=== PATIENT | male | born 1955 | race African-American/Black ===

== ENCOUNTER → 2020-04-15 15:25 | Outpatient (BNVA) | payer OTHER, SELFPAY | PROVIDERS: PCP Pediatrics Adolescent Medicine; Visit Provider Urology ==

== ENCOUNTER → 2021-07-28 13:50 | Outpatient (BNVA) | payer MEDICARE, OTHER, SELFPAY | PROVIDERS: PCP Pediatrics Adolescent Medicine; Visit Provider Urology | DX: N40.1 Benign prostatic hyperplasia with lower urinary tract symptoms (principal); N13.8 Other obstructive and reflux uropathy; R39.12 Poor urinary stream; N52.9 Male erectile dysfunction, unspecified | CPT/HCPCS: 99212 ==

== ENCOUNTER → 2021-09-17 14:56 | Outpatient (BNVA) | payer MEDICARE, OTHER, SELFPAY | PROVIDERS: PCP Pediatrics Adolescent Medicine; Visit Provider Urology | DX: N40.1 Benign prostatic hyperplasia with lower urinary tract symptoms (principal); N13.8 Other obstructive and reflux uropathy; N48.6 Induration penis plastica; N52.9 Male erectile dysfunction, unspecified | CPT/HCPCS: 52000; 99212 ==

== ENCOUNTER → 2021-12-24 13:08 | Outpatient (BNVA) | payer MEDICARE, OTHER, SELFPAY | PROVIDERS: PCP Pediatrics Adolescent Medicine; Visit Provider Urology | DX: N48.6 Induration penis plastica (principal); R39.12 Poor urinary stream; N52.9 Male erectile dysfunction, unspecified | CPT/HCPCS: Q3014 ==

== ENCOUNTER 2022-03-29 12:56 | Outpatient (REF) | payer MEDICARE, OTHER, SELFPAY | END 2022-03-29 12:57 | disposition home or self-care (01) | LOC: HO.LAB 12:56 | PROVIDERS: PCP Pediatrics Adolescent Medicine; Visit Provider Urology | DX: N39.0 Urinary tract infection, site not specified (principal); R39.12 Poor urinary stream; N40.1 Benign prostatic hyperplasia with lower urinary tract symptoms; N13.8 Other obstructive and reflux uropathy | CPT/HCPCS: 51798; 87086; 99212 ==

== ENCOUNTER → 2022-05-03 10:55 | Outpatient (BNVA) | payer MEDICARE, OTHER, SELFPAY | PROVIDERS: PCP Pediatrics Adolescent Medicine; Visit Provider Urology | DX: N40.1 Benign prostatic hyperplasia with lower urinary tract symptoms (principal); N13.8 Other obstructive and reflux uropathy; N48.6 Induration penis plastica; N52.9 Male erectile dysfunction, unspecified | CPT/HCPCS: 52000; 99212 ==

== ENCOUNTER 2022-06-13 09:23 | Day surgery (SDC) | payer MEDICARE, OTHER, SELFPAY ==
[2022-06-07 13:40] VITALS: BMI 25.7
--- NOTE | 2022-06-10 11:17 | P.CONAN_ITS ---
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 Chronic prostatitis Diverticulitis Enterococcus as the cause of diseases classified elsewhere Erectile dysfunction due to arterial insufficiency HTN (hypertension) Hyperlipidemia Irregular heart beat Nocturia UTI (urinary tract infection) Surgical History Surgical History (Updated 06/07/22 @ 13:39 by Aretha Molina RN) H/O colonoscopy History of colon resection History of prostate surgery History of surgery Social History Social History Are you a primary resident care manager to a significant other at home: No Do you presently have visiting nurse or other home services: No Patient Tobacco Use Status: Never used Tobacco Use of substances other than those prescribed or required for medical reasons: No Have you been hit, kicked, punched, or otherwise hurt by someone within the past year? If so, by whom?: No Are you DNR?: No Advance Directives Information Provided: Yes (as above noted) Advance Directives on File: No Recently lost weight without trying: No Eating poorly because of decreased appetite: No Nutrition Risks: No Nutritional Risk Poor oral hygiene: No Meds Allergies Allergy/AdvReac Type Severity Reaction Status Date / Time No Known Allergies Allergy Verified 05/03/22 10:58 [No Known Allergies*] Home Medications Medication Instructions Recorded Confirmed Last Taken Type atorvastatin 10 mg tablet 10 mg PO DAILY 07/28/21 06/07/22 Unknown History carvedilol 3.125 mg tablet 3.125 mg PO BID 07/28/21 06/07/22 Unknown History clonidine HCl 0.1 mg tablet 0.1 mg PO BID 07/28/21 06/07/22 Unknown History eplerenone 50 mg tablet 50 mg PO DAILY 07/28/21 06/07/22 Unknown History nifedipine 90 mg tablet,extended 90 mg PO DAILY 07/28/21 06/07/22 Unknown History release losartan 100 mg tablet 100 mg PO DAILY 05/03/22 06/07/22 Unknown History vitamin E (dl, acetate) 450 mg 450 mg PO DAILY 06/07/22 06/07/22 Unknown History (1,000 unit) capsule Exam Exam Date and Time: June 10, 2022 1117 Height,Weight and Vital Signs: Height 5 ft 11 in Weight 83.915 kg Assessment and Plan Assessment Anesthesia Assessment: Chart Reviewed Documented by User: Brittni Tucker MD 06/13/22 11:29 PMFSH Past Medical History Medical History (Updated 06/07/22 @ 13:39 by Aretha Molina RN) 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 Chronic prostatitis Diverticulitis Enterococcus as the cause of diseases classified elsewhere Erectile dysfunction due to arterial insufficiency HTN (hypertension) Hyperlipidemia Irregular heart beat Nocturia UTI (urinary tract infection) Family History Family history of problems with anesthesia: No Surgical History Surgical History (Updated 06/07/22 @ 13:39 by Aretha Molina RN) H/O colonoscopy History of colon resection History of prostate surgery History of surgery History of Problems with Anesthesia: No Social History Social History Are you a primary resident care manager to a significant other at home: No Do you presently have visiting nurse or other home services: No Patient Tobacco Use Status: Never used Tobacco Use of substances other than those prescribed or required for medical reasons: No Have you been hit, kicked, punched, or otherwise hurt by someone within the past year? If so, by whom?: No Are you DNR?: No Advance Directives Information Provided: Yes (as above noted) Advance Directives on File: No Recently lost weight without trying: No Eating poorly because of decreased appetite: No Nutrition Risks: No Nutritional Risk Poor oral hygiene: No Meds Allergies Allergy/AdvReac Type Severity Reaction Status Date / Time No Known Allergies Allergy Verified 05/03/22 10:58 [No Known Allergies*] Home Medications Medication Instructions Recorded Confirmed Last Taken Type atorvastatin 10 mg tablet 10 mg PO DAILY 07/28/21 06/07/22 Unknown History carvedilol 3.125 mg tablet 3.125 mg PO BID 07/28/21 06/07/22 Unknown History clonidine HCl 0.1 mg tablet 0.1 mg PO BID 07/28/21 06/07/22 Unknown History eplerenone 50 mg tablet 50 mg PO DAILY 07/28/21 06/07/22 Unknown History nifedipine 90 mg tablet,extended 90 mg PO DAILY 07/28/21 06/07/22 Unknown History release losartan 100 mg tablet 100 mg PO DAILY 05/03/22 06/07/22 Unknown History vitamin E (dl, acetate) 450 mg 450 mg PO DAILY 06/07/22 06/07/22 Unknown History (1,000 unit) capsule Exam Airway Mallampati Class: II TM Dist: >3cm Neck ROM: Full Heart: rrr Lungs: cta Assessment and Plan Assessment Anesthesia Assessment: Anesthesia Plan Discussed Final Anesthetic Review Family History of Problems with Anesthesia: No History of Problems with Anesthesia: No NPO: Yes ASA Class: II Final Preanesthetic Review: No Changes in Pt Med Stat, Meds/Allgs Chart Reviewed, Consent Obtained/Reviewed and Anes Risks/Benef Reviewed Patient Risk: Low Procedure Risk: Intermediate Anesthetic Plan Anesthetic Plan: GA Disposition: Standard PACU
[2022-06-13 09:52] VITALS: BP 160/63; PULSE 50; RESP 16; TEMP 36.3; O2SAT 98; BMI 25.7
--- NOTE | 2022-06-13 11:46 | MHC.SHP ---
Pre-Procedural Eval Section A Date of Service: 06/13/22 The patient is an INPATIENT: No Changes since office visit: No Cold of Flu in the past 2 weeks, No New Medical Problems, No Changes in Medication and No Patient answered all questions The History & Physical has been completed within 30 days and I have reviewed it.: Yes Section B Chief Complaint: Benign prostatic hyperplasia with lower urinary tr Details of Present Illness: Regrowth for repeat TURP Allergies: Allergies Allergy/AdvReac Type Severity Reaction Status Date / Time No Known Allergies Allergy Verified 05/03/22 10:58 [No Known Allergies*] Review of Systems Sugical H&P ROS: Negative: Constitution, Cardiovascular, Respiratory, Neurological, Psychiatric, Hem-Onc, Allergic/Immunologic, Gastrointestinal, Genitourinary, Musculoskeletal, Integumentary, Endocrine and Eyes/Ears/Nose/Throat Exam Surgical H&P Exam: Normal: HEENT, Normal: Heart, Normal: Lungs, Normal: Extremities, Normal: Abdomen, Normal: Skin and Normal: Neurological Plan Diagnosis/Plan: Unchanged (redo laser enucleation) I have reviewed the history and physical and performed a pertinent physical examination on my patient. No changes have occurred unless specified. Time Spent With Patient Time: Total time managing care of this patient today ____ minutes.
--- NOTE | 2022-06-13 12:39 | W.PM.OPN ---
Operative Note Operative Note Date of Service: 06/13/22 Narrative: PreOperative Diagnosis: Bladder outlet obstruction recurrent Post Operative Diagnosis: Bladder outlet obstruction recurrent Procedure: GreenLight Laser Enucleation of the prostate Surgeon: Dr Regulo Mina Anesthesia: General Indications for procedure: procedure in 2017 History of bladder outlet obstruction. Treated with alpha-jorge and other medications. Still with symptoms. On cystoscopy in office has recurrence of median lobe. Recommendation for prostate procedure with laser enucleation of prostate. Risks and benefits have been discussed. Focus was placed on development of retrograde ejaculation which is a normal part of this procedure. Procedure: After informed consent was verified the patient was brought to the operating room and placed in a supine position. Anesthesia was administered per protocol. Patient was placed in modified dorsal lithotomy position and prepped and draped in a sterile fashion. Safety pause time-out was confirmed. Antibiotics have been given. A Twenty-four Trinidadian laser cystoscope was inserted per urethra. No abnormalities were found of the anterior and bulbar urethra. The bladder was examined and both ureteric orifices were seen in their normal positions away from the area of interest. Using a GreenLight laser with settings of 80 w incisions were made at the 5 and 7 o'clock position. The incisions were taken down from the bladder neck down to the level of the veru. These were gradually deepened in order to define the lateral aspects of the median lobe area. Once clearly defined they will also extended in the lateral directions in order to create a deep groove. The median lobe was then ablated and enucleated tissue released into the bladder with the laser power increased to 120 W. Once the median lobe area had been cleared attention was directed to the lateral lobes. Starting with the patient's left lateral lobe. First the 05:00 o'clock groove was further developed. This was moved in the lateral direction to undermine the tissue on the lateral side running from the bladder neck to the prostate apex. The tissue on the left side was ablated from the 7 oclock to 10 oclock position and 5 oclock to 2 oclock position A similar procedure was repeated on the patient's right-hand side. The only differences being the position of the lateral groove at he 7 'oclock positioin and the secondary groove at the 11 o'clock position, Otherwise the procedure was developed in a mirror fashion. After the majority of tissue had been debulked remnant tissue was ablated with the side fire laser and the curve of the prostate followed up each side wall clearly defining the anterior remnant strip that remained between the 11 and 1 o'clock positions. When this was had been completed debris and pieces of prostate were removed from the bladder with irrigation. Both ureteric orifices were reviewed again in shown to be patent in away from any areas of energy damage. The apical area was reviewed in any stray ooze was controlled. A 22 Trinidadian 30 cc balloon Albrecht catheter was placed over a stylet into the bladder. Clear efflux was obtained upopn irrigation with a Krunal piston syringe. 30 cc was placed in the balloon and gentle traction was placed. A snap was used to hold tension on the catheter to control bleeding during patient moved and transported. A drainage bag was placed. Once transportation is complete to the PACU the snap will be removed. The patient tolerated the procedure well, he was extubated in the operating and transferred in a stable condition to the recovery area. Total Power 45 kW Lasing time 10;30 Pathology: Prostate tissue Drains: Albrecht catheter
[2022-06-13 12:46] VITALS: BP 108/59; PULSE 46; RESP 14; TEMP 36.8; O2SAT 94
[2022-06-13 12:51] VITALS: BP 110/44; PULSE 43; RESP 16; O2SAT 98
[2022-06-13 12:56] VITALS: BP 120/52; PULSE 44; RESP 16; O2SAT 98
[2022-06-13 13:01] VITALS: BP 122/61; PULSE 46; RESP 16; O2SAT 97
[2022-06-13 13:16] VITALS: BP 123/63; PULSE 51; RESP 16; TEMP 36.3; O2SAT 98
== END 2022-06-13 13:57 | disposition home or self-care (01) ==
PROVIDERS: PCP Pediatrics Adolescent Medicine; Visit Provider Urology
PROC: (CPT 52648; principal; 2022-06-13 11:00)
DX: N40.1 Benign prostatic hyperplasia with lower urinary tract symptoms (principal); N13.8 Other obstructive and reflux uropathy; R35.1 Nocturia; N41.1 Chronic prostatitis; N52.9 Male erectile dysfunction, unspecified; N48.6 Induration penis plastica; G51.0 Bell's palsy; I10 Essential (primary) hypertension; E78.5 Hyperlipidemia, unspecified; Z79.899 Other long term (current) drug therapy; Z90.49 Acquired absence of other specified parts of digestive tract
CPT/HCPCS: 52649; J1956; J3010

== ENCOUNTER → 2022-06-16 09:56 | Outpatient (BNVA) | payer MEDICARE, OTHER, SELFPAY | PROVIDERS: PCP Pediatrics Adolescent Medicine; Visit Provider Urology | DX: N40.1 Benign prostatic hyperplasia with lower urinary tract symptoms (principal); N13.8 Other obstructive and reflux uropathy | CPT/HCPCS: 51700; 51798 ==

== ENCOUNTER → 2022-07-29 09:29 | Outpatient (BNVA) | payer MEDICARE, OTHER, SELFPAY | PROVIDERS: PCP Pediatrics Adolescent Medicine; Visit Provider Urology | DX: N40.1 Benign prostatic hyperplasia with lower urinary tract symptoms (principal); N13.8 Other obstructive and reflux uropathy; N52.9 Male erectile dysfunction, unspecified | CPT/HCPCS: 51798; 99212 ==

== ENCOUNTER 2023-01-30 10:40 | Outpatient (REF) | payer MEDICARE, OTHER, SELFPAY ==
[2023-01-30 14:03] LABS: Prostate Specific Antigen 3.44 ng/mL (<0.05-4.0)
== END 2023-01-30 10:41 | disposition home or self-care (01) ==
LOC: HO.10HDL 10:40
PROVIDERS: Visit Provider Urology
DX: Z12.5 Encounter for screening for malignant neoplasm of prostate (principal); N40.1 Benign prostatic hyperplasia with lower urinary tract symptoms; N13.8 Other obstructive and reflux uropathy
CPT/HCPCS: 36415; 84153

== ENCOUNTER 2023-01-31 15:24 | Outpatient (AMB) | payer MEDICARE, OTHER, SELFPAY ==
--- NOTE | 2023-01-31 15:25 | MHC.OFFVIS ---
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
--- NOTE | 2023-01-31 15:28 | MHC.OFFVIS ---
Intake Intake Visit Reasons: 6M PSA(set) Intake Note: Patient is Present for Follow Up Urology Medication: Sildenafil, Tadalafil Antibiotic Allergies: None Blood Thinners: None Allergies No Known Allergies [No Known Allergies*] Allergy (Verified 07/29/22 09:41) HPI HPI Comments History of Present Illness Details Mr Rucker is a very pleasant male. He is a patient of Dr Melgar. He is seen for the following urologic conditions - lower urinary tract symptoms - erectile dysfunction - Peyronie's disease Six month follow-up Recurrent Peyronie's Discussed vacuum pump therapy Prescriptions provided 6 month follow-up Lower Urinary Tract Symptoms: Current visit is for further evaluation of, lower urinary tract symptoms, predominate obstructive symptoms - minimal issues with good stream. Current treatment includes 04/15 no medications. Prior treatments include 10/10 HoLEP, 07/17 Green Light PSA 08/11 1.7 04/15 2.0, 02/16 3.4 Prostatitis/CPPS: 10/14/15 - seen in ER at [facility]. Noted to have Escherichia coli urinary tract infection. Erectile dysfunction: He presents today for for continued evaluation and management of erectile dysfunction. Symptoms have been present for/since years ago. Current treatment includes sildenafil 100 mg. At this time he experiences erections 09/11 are partial and adequate for vaginal penetration, that undergo rapid detumesence after penetration, ROVERTO 8-11 Moderate ED. Nocturnal erections do occur. Currently they are in a stable relationship. Associated problems hypertension Yes diabetes No dyslipidemia No depression No stress No decreased libido No pelvic surgery No Overall he is satisfied with the current management [facility] Medical History Diverticulitis Irregular heart beat Travis's palsy HTN (hypertension) Hyperlipidemia Erectile dysfunction due to arterial insufficiency Nocturia Benign prostatic hyperplasia with lower urinary tract symptoms Chronic prostatitis Enterococcus as the cause of diseases classified elsewhere UTI (urinary tract infection) Surgical History History of colon resection H/O colonoscopy History of prostate surgery History of surgery Social History Are you a primary transitions rn care coordinator to a significant other at home: No Do you presently have visiting nurse or other home services: No Patient Tobacco Use Status: Never used Tobacco Review of Systems Const Denies chills and Denies fever(s) Card Reports no additional complaints and Denies syncope Resp Denies cough GI Denies abdominal pain and Denies heartburn Reports as per HPI and Denies change in libido Neuro Denies syncope Psych Denies change in libido Endo Denies change in libido Physical Exam Const General: cooperative, healthy appearing, comfortable and no acute distress Orientation/consciousness: patient oriented x3 HEENT Face and sinus: Yes normal facial exam Mouth: moist mucous membranes Neck Neck: Yes normal visual inspection, Yes full ROM and Yes trachea midline Chest Chest palpation & inspection: normal inspection of the chest Resp Effort & Inspection: normal respiratory effort, able to speak in complete sentences and no respiratory distress GI Inspection: Yes normal to inspection Back/Spine/Pelvis Cervical Spine: normal cervical lordosis Thoracic/Lumbar Spine: thoracic and lumbar spine normal to inspection Skin General skin exam: no rashes or lesions noted Neuro General: patient oriented x3, gait normal, tone normal and moves all extremities Extrem General: Yes normal to inspection and Yes capillary refill normal Assessment & Plan Assessment & Plan (1) Erectile dysfunction: Code(s): N52.9 - Male erectile dysfunction, unspecified Qualifiers: Erectile dysfunction type: vasculogenic Vasculogenic erectile dysfunction type: due to arterial insufficiency Qualified Code(s): N52.01 - Erectile dysfunction due to arterial insufficiency (2) Peyronie's disease: Code(s): N48.6 - Induration penis plastica Plan Six month follow-up Orders: Orders Prostate Specific Antigen 6 Months N13.8 - Other obstructive and reflux uropathy, N40.1 - Benign prostatic hyperplasia with lower urinary tract symptoms Medications: New vitamin E (dl, acetate) 450 mg PO DAILY 90 caps 1RF 90 days N48.6 - Induration penis plastica pentoxifylline ER administer with meals 400 mg PO BID 180 tabs 1RF 90 days N48.6 - Induration penis plastica Patient Instructions: Imaging studies, laboratory and physical exam results were discussed and reviewed in detail. No major barriers to patient understanding were identified. An opportunity to ask questions regarding the treatment plan was provided. All questions were answered. The patient expressed understanding and agreement with the above treatment plan. The patient is aware they should contact our office by phone for worsening of their current condition or the appearance of new urologic symptoms. Compliance is encouraged with any medications and followup testing that is ordered. It is a privilege to participate in the urologic care of your patient. If you have any questions or concerns regarding treatment for the above conditions, or other urologic issues, please do not hesitate to contact me. The office telephone contact is [phone]. This note is constructed using voice recognition software. While every effort has been made to ensure accuracy paper cup machine tender errors may have been included. Yours sincerely, Dr Regulo Mina MD, [facility] - Urology Providers of Expert, Compassionate Care for the Genitourinary System Coding Level of Care Code Est Pt Level 4 (78151) Diagnoses Erectile dysfunction due to arterial insufficiency N52.01 Erectile dysfunction type: vasculogenic Vasculogenic erectile dysfunction type: due to arterial insufficiency Peyronie's disease N48.6
== END 2023-01-31 15:55 | disposition home or self-care (01) ==
PROVIDERS: Visit Provider Urology
DX: N52.01 Erectile dysfunction due to arterial insufficiency (principal); N48.6 Induration penis plastica
CPT/HCPCS: 99214

== ENCOUNTER → 2023-01-31 15:24 | Outpatient (BNVA) | payer MEDICARE, OTHER, SELFPAY | PROVIDERS: Visit Provider Urology | DX: N52.01 Erectile dysfunction due to arterial insufficiency (principal); N48.6 Induration penis plastica | CPT/HCPCS: 99212 ==

== ENCOUNTER 2023-07-25 07:59 | Outpatient (REF) | payer MEDICARE, OTHER, SELFPAY ==
[2023-07-25 11:14] LABS: Prostate Specific Antigen 2.02 ng/mL (<0.05-4.0)
== END 2023-07-25 08:00 | disposition home or self-care (01) ==
LOC: HO.10HDL 07:59
PROVIDERS: Visit Provider Urology
DX: Z12.5 Encounter for screening for malignant neoplasm of prostate (principal); N40.1 Benign prostatic hyperplasia with lower urinary tract symptoms; N13.8 Other obstructive and reflux uropathy
CPT/HCPCS: 36415; 84153

== ENCOUNTER 2023-08-01 09:12 | Outpatient (AMB) | payer MEDICARE, OTHER, SELFPAY ==
--- NOTE | 2023-08-01 09:13 | MHC.OFFVIS ---
Intake Visit Reasons: 6M PSA(set) Intake Note: Patient is Present for Telephone Follow Up Urology Med: Sildenafil, Pentoxifylline, Tadalafil, Vitamin E Antibiotic Allergy: None Blood Thinner: None Allergies No Known Allergies [No Known Allergies*] Allergy (Verified 08/01/23 09:14) Medication List - Last Reconciled 08/01/23 by Regulo Mina MD atorvastatin 10 mg PO DAILY carvedilol 6.25 mg PO BID clonidine HCl 0.1 mg PO BID eplerenone 50 mg PO DAILY losartan 100 mg PO DAILY losartan 50 mg PO BID nifedipine ER 90 mg PO DAILY pentoxifylline ER 400 mg PO BID 90 days pentoxifylline ER 400 mg PO BID 90 days sildenafil 100 mg PO DAILY PRN 30 days tadalafil 5 mg PO DAILY 90 days vitamin E (dl, acetate) 450 mg PO DAILY vitamin E (dl, acetate) 450 mg PO DAILY 90 days HPI Comments Details: Mr Rucker is a very pleasant male. He is a patient of Dr Melgar. He is seen for the following urologic conditions - lower urinary tract symptoms - erectile dysfunction - Peyronie's disease Telemedicine Evaluation 15 min Consultation [employer] Danilo Video Six month follow-up Recurrent Peyronie's - stable not interfering with activity Prescriptions provided 6 month follow-up Lower Urinary Tract Symptoms: Current visit is for further evaluation of, lower urinary tract symptoms, predominate obstructive symptoms - minimal issues with good stream. Current treatment includes 04/15 no medications. Prior treatments include 10/10 HoLEP, 07/17 Green Light PSA 08/11 1.7 04/15 2.0, 02/16 3.4, 07/18 2 Prostatitis/CPPS: 10/14/15 - seen in ER at [facility]. Noted to have Escherichia coli urinary tract infection. Erectile dysfunction: He presents today for for continued evaluation and management of erectile dysfunction. Symptoms have been present for/since years ago. Current treatment includes sildenafil 100 mg. At this time he experiences erections 09/11 are partial and adequate for vaginal penetration, that undergo rapid detumesence after penetration, ROVERTO 8-11 Moderate ED. Nocturnal erections do occur. Currently they are in a stable relationship. Associated problems hypertension Yes Overall he is satisfied with the current management [facility] Medical History Diverticulitis Irregular heart beat Travis's palsy HTN (hypertension) Hyperlipidemia Erectile dysfunction due to arterial insufficiency Nocturia Benign prostatic hyperplasia with lower urinary tract symptoms Chronic prostatitis Enterococcus as the cause of diseases classified elsewhere UTI (urinary tract infection) Surgical History History of colon resection H/O colonoscopy History of prostate surgery History of surgery Social History Are you a primary care technician to a significant other at home: No Do you presently have visiting nurse or other home services: No Patient Tobacco Use Status: Never used Tobacco Review of Systems Const All systems reviewed & are unremarkable except as noted in HPI and below Reports no additional complaints Resp Reports no additional complaints GI Reports no additional complaints Reports as per HPI Musc Reports no additional complaints Physical Exam Telemedicine evaluation Appropriate responses Regular breathing rate and rhythm HEENT Head: Yes normal to inspection Ears: hearing grossly normal bilaterally Eyes General: appearance normal, both eyes and all related structures Neck Neck: Yes normal visual inspection Chest Chest palpation & inspection: normal inspection of the chest Resp Effort & Inspection: normal respiratory effort and able to speak in complete sentences Telehealth Telehealth Telehealth Platform: [employer] Location of provider rendering services: practice address Location of patient: address on file Patient Identification confirmed using: Name, : Yes Telehealth method: video Patient verbally consented to treatment: Yes Patient verbally consented to billing insurance company: Yes Patient informed of any privacy concerns related to visit: Yes Minutes spent on Phone/Video with Pt.: 15 Assessment & Plan Assessment & Plan (1) Erectile dysfunction: Code(s): N52.9 - Male erectile dysfunction, unspecified Category: Medical Qualifiers: Erectile dysfunction type: vasculogenic Vasculogenic erectile dysfunction type: due to arterial insufficiency Qualified Code(s): N52.01 - Erectile dysfunction due to arterial insufficiency (2) Peyronie's disease: Code(s): N48.6 - Induration penis plastica Category: Medical (3) BPH w urinary obs/LUTS: Code(s): N40.1 - Benign prostatic hyperplasia with lower urinary tract symptoms; N13.8 - Other obstructive and reflux uropathy Category: Medical Plan Six-month follow-up Office Medications: Refilled vitamin E (dl, acetate) 450 mg PO DAILY 90 caps 1RF 90 days N48.6 - Induration penis plastica pentoxifylline ER administer with meals 400 mg PO BID 180 tabs 1RF 90 days N48.6 - Induration penis plastica tadalafil 5 mg PO DAILY 90 tabs 1RF sexual activity 90 days N48.6 - Induration penis plastica, N52.01 - Erectile dysfunction due to arterial insufficiency Patient Instructions: Imaging studies, laboratory and physical exam results were discussed and reviewed in detail. No major barriers to patient understanding were identified. An opportunity to ask questions regarding the treatment plan was provided. All questions were answered. The patient expressed understanding and agreement with the above treatment plan. The patient is aware they should contact our office by phone for worsening of their current condition or the appearance of new urologic symptoms. Compliance is encouraged with any medications and followup testing that is ordered. It is a privilege to participate in the urologic care of your patient. If you have any questions or concerns regarding treatment for the above conditions, or other urologic issues, please do not hesitate to contact me. The office telephone contact is [phone]. This note is constructed using voice recognition software. While every effort has been made to ensure accuracy manager house errors may have been included. Yours sincerely, Dr Regulo Mina MD, [facility] - Urology Providers of Expert, Compassionate Care for the Genitourinary System Coding Level of Care Code Tele Est Pt Level 3 (92588) Diagnoses Erectile dysfunction due to arterial insufficiency N52.01 Erectile dysfunction type: vasculogenic Vasculogenic erectile dysfunction type: due to arterial insufficiency Peyronie's disease N48.6 BPH w urinary obs/LUTS N40.1; N13.8
== END 2023-08-01 09:50 | disposition home or self-care (01) ==
LOC: HO.HUSH 09:12
PROVIDERS: PCP Pediatrics Adolescent Medicine; Visit Provider Urology
DX: N52.01 Erectile dysfunction due to arterial insufficiency (principal); N48.6 Induration penis plastica; N40.1 Benign prostatic hyperplasia with lower urinary tract symptoms; N13.8 Other obstructive and reflux uropathy
CPT/HCPCS: 99213

== ENCOUNTER → 2023-08-01 09:12 | Outpatient (BNVA) | payer MEDICARE, OTHER, SELFPAY | PROVIDERS: PCP Pediatrics Adolescent Medicine; Visit Provider Urology ==

== ENCOUNTER 2024-01-31 15:27 | Outpatient (AMB) | payer MEDICARE, OTHER, SELFPAY ==
--- NOTE | 2024-01-31 15:33 | MHC.OFFVIS ---
Intake Visit Reasons: 6m follow up Intake Note: Patient is present for 6M F/U Urology Medication: Sildenafil, Tadalafil, Pentoxifyllin, Vitamin E Antibiotic Allergy: None Blood Thinner: None Allergies No Known Allergies [No Known Allergies*] Allergy (Verified 08/01/23 09:14) HPI Comments Details: Mr Rucker is a very pleasant male. He is a patient of Dr Melgar. He is seen for the following urologic conditions - lower urinary tract symptoms - erectile dysfunction - Peyronie's disease Six month follow-up Recurrent Peyronie's - stable not interfering with activity - palpable plaque at dorsum of penis Prescriptions provided Twelve month follow-up Lower Urinary Tract Symptoms: Current visit is for further evaluation of, lower urinary tract symptoms, predominate obstructive symptoms - minimal issues with good stream. Current treatment includes 04/15 no medications. Prior treatments include 10/10 HoLEP, 07/17 Green Light PSA 08/11 1.7 04/15 2.0, 02/16 3.4, 07/18 2 Prostatitis/CPPS: 10/14/15 - seen in ER at [facility]. Noted to have Escherichia coli urinary tract infection. Erectile dysfunction: He presents today for for continued evaluation and management of erectile dysfunction. Symptoms have been present for/since years ago. Current treatment includes sildenafil 100 mg. At this time he experiences erections 09/11 are partial and adequate for vaginal penetration, that undergo rapid detumesence after penetration, ROVERTO 8-11 Moderate ED. Nocturnal erections do occur. Currently they are in a stable relationship. Associated problems hypertension Yes Overall he is satisfied with the current management [facility] Medical History Diverticulitis Irregular heart beat Travis's palsy HTN (hypertension) Hyperlipidemia Erectile dysfunction due to arterial insufficiency Nocturia Benign prostatic hyperplasia with lower urinary tract symptoms Chronic prostatitis Enterococcus as the cause of diseases classified elsewhere UTI (urinary tract infection) Surgical History History of colon resection H/O colonoscopy History of prostate surgery History of surgery Social History Are you a primary child care group leader to a significant other at home: No Do you presently have visiting nurse or other home services: No Patient Tobacco Use Status: Never used Tobacco Review of Systems Const Denies chills and Denies fever(s) Card Reports no additional complaints and Denies syncope Resp Denies cough GI Denies abdominal pain and Denies heartburn Reports as per HPI and Denies change in libido Neuro Denies syncope Psych Denies change in libido Endo Denies change in libido Physical Exam Const General: cooperative, healthy appearing, comfortable and no acute distress Orientation/consciousness: patient oriented x3 HEENT Face and sinus: Yes normal facial exam Mouth: moist mucous membranes Neck Neck: Yes normal visual inspection, Yes full ROM and Yes trachea midline Chest Chest palpation & inspection: normal inspection of the chest Resp Effort & Inspection: normal respiratory effort, able to speak in complete sentences and no respiratory distress GI Inspection: Yes normal to inspection Back/Spine/Pelvis Cervical Spine: normal cervical lordosis Thoracic/Lumbar Spine: thoracic and lumbar spine normal to inspection Skin General skin exam: no rashes or lesions noted Neuro General: patient oriented x3, gait normal, tone normal and moves all extremities Extrem General: Yes normal to inspection and Yes capillary refill normal Assessment & Plan Assessment & Plan (1) BPH w urinary obs/LUTS: Code(s): N40.1 - Benign prostatic hyperplasia with lower urinary tract symptoms; N13.8 - Other obstructive and reflux uropathy Category: Medical (2) Erectile dysfunction: Code(s): N52.9 - Male erectile dysfunction, unspecified Category: Medical Qualifiers: Erectile dysfunction type: vasculogenic Vasculogenic erectile dysfunction type: due to arterial insufficiency Qualified Code(s): N52.01 - Erectile dysfunction due to arterial insufficiency (3) Peyronie's disease: Code(s): N48.6 - Induration penis plastica Category: Medical Plan Stable 12 month follow-up Orders: Orders Prostate Specific Antigen 364 Days N13.8 - Other obstructive and reflux uropathy, N40.1 - Benign prostatic hyperplasia with lower urinary tract symptoms Medications: Discontinued pentoxifylline ER administer with meals Discontinued Reason: Duplicate 400 mg PO BID 90 days 180 tabs 1RF N48.6 - Induration penis plastica Patient Instructions: Imaging studies, laboratory and physical exam results were discussed and reviewed in detail. No major barriers to patient understanding were identified. An opportunity to ask questions regarding the treatment plan was provided. All questions were answered. The patient expressed understanding and agreement with the above treatment plan. The patient is aware they should contact our office by phone for worsening of their current condition or the appearance of new urologic symptoms. Compliance is encouraged with any medications and followup testing that is ordered. It is a privilege to participate in the urologic care of your patient. If you have any questions or concerns regarding treatment for the above conditions, or other urologic issues, please do not hesitate to contact me. The office telephone contact is [phone]. This note is constructed using voice recognition software. While every effort has been made to ensure accuracy ab initio etl developer errors may have been included. Yours sincerely, Dr Regulo Mina MD, [facility] - Urology Providers of Expert, Compassionate Care for the Genitourinary System Coding Level of Care Code Est Pt Level 3 (81325) Diagnoses BPH w urinary obs/LUTS N40.1; N13.8 Erectile dysfunction due to arterial insufficiency N52.01 Erectile dysfunction type: vasculogenic Vasculogenic erectile dysfunction type: due to arterial insufficiency Peyronie's disease N48.6
== END 2024-01-31 16:10 | disposition home or self-care (01) ==
LOC: HO.HUSH 15:27
PROVIDERS: PCP Pediatrics Adolescent Medicine; Visit Provider Urology
DX: N40.1 Benign prostatic hyperplasia with lower urinary tract symptoms (principal); N13.8 Other obstructive and reflux uropathy; N52.01 Erectile dysfunction due to arterial insufficiency; N48.6 Induration penis plastica
CPT/HCPCS: 99213

== ENCOUNTER → 2024-01-31 15:27 | Outpatient (BNVA) | payer MEDICARE, OTHER, SELFPAY | PROVIDERS: PCP Pediatrics Adolescent Medicine; Visit Provider Urology | DX: N48.6 Induration penis plastica (principal); N40.1 Benign prostatic hyperplasia with lower urinary tract symptoms; N13.8 Other obstructive and reflux uropathy; N52.01 Erectile dysfunction due to arterial insufficiency | CPT/HCPCS: 99212 ==

== ENCOUNTER 2025-02-07 07:37 | Outpatient (REF) | payer MEDICARE, OTHER, SELFPAY ==
--- OUTSIDE RECORDS SUMMARY | 2025-02-07 07:39 | XMS_ITS | Clinical Summary ---
Author Organization [facility] Address [address] [place] [address] Care Team Providers Care Commercial Loan Administrator Name Role Phone Lisha Charles MD Primary Care Provid er Allergies No known active allergies Medications Medication Sig Dispensed Refills Start Date End Date Status atorvastatin (LIPITOR) tablet 10 mg Take by mouth. 0 Active carvedilol (COREG) 6.25 MG tablet Take by mouth. 0 09/30/2022 Active cloNIDine (CATAPRES) tablet 0.1 mg Take by mouth. 0 Active Cyanocobalamin ER 1000 MCG TBCR Take by mouth. 0 Active eplerenone (INSPRA) tablet 50 mg 0 12/28/2021 Active gabapentin (NEURONTIN) 300 MG capsule Take by mouth. 0 12/01/2022 Active losartan (COZAAR) 100 MG tablet Take by mouth. 0 04/22/2022 Active Multiple Vitamins-Minerals (Multivitamin Adults) TABS Take by mouth. 0 Active naproxen (NAPROSYN) 500 MG tablet Take by mouth. 0 12/01/2022 Active NIFEdipine ER (ADALAT CC) 90 MG 24 hr tablet Take by mouth. 0 Ac tive pentoxifylline (TRENtal) 400 MG CR tablet 0 Active predniSONE (DELTASONE) tablet 20 mg Take by mouth. 0 12/01/2022 Active tadalafil (CIALIS) 5 MG tablet 0 Active Active Problems No known active problems Social History Tobacco Use Types Packs/Day Years Used Date Smoking Tobacco: Never Smokeless Tobacco: Never Tobacco Cessation:Counseling Given: Not Answered Alcohol Use Standard Drinks/Week Comments Yes 0 (1 standard drink = 0.6 oz pur e alcohol) Social Sex and Gender Information Value Date Recorded Sex Assigned at Male 02/03/2023 11:07 AM EST Gender Identity Not on file Sexual Orientation Not on file Job Start Date Occupation Industry Not on file Not on file Not on file Last Filed Vital Signs Vital Sign Reading Time Taken Comments Blood Pressure 167/66 03/30/2023 3:59 PM EST Pulse 54 03/30/2023 3:59 PM EST Temperature 36.1 C (97 F) 03/30/2023 3:59 PM EST Respiratory Rate - - Oxygen Saturation 100% 03/30/2023 3:59 PM EST Inhaled Oxygen Concentration - - Weight 85.1 kg (187 lb 9.6 oz) 03/30/2023 3:59 P M EST Height - - Body Mass Index - - Plan of Treatment Health Maintenance Due Date Last Done Comments Hepatitis C Screening 1955 COVID-19 Vaccine (#1) 01[birth year]01/1955 Depression Screening 1966 Preventative Health Evaluation 1972 DTap / Tdap / Td (1 - Tdap) 1973 Colon Cancer Screening (Colonoscopy) 07/03/1999 Shingrix-Zoster Vaccine (1 of 2) 2004 Fall Risk Assessment 07/03/2019 Pneumococcal Vaccine (1 of 1 - PCV) 07/03/2019 Influenza Vaccine (#1) 2024 RSV Adult > 60+ Yrs or Pregn ant (1 - 1-dose 75+ series) 2029 Hepatitis B Vaccines Aged Out No long er eligible based on patient's age to complete this topic RSV Ped < 20 months Aged Out No longe r eligible based on patient's age to complete this topic Care Teams Commercial Loan Administrator Relationship Specialty Start Date End Date Lisha Charles MD [address] [place] [address] PCP - General Gastroenterology 02/03/23
--- OUTSIDE RECORDS SUMMARY | 2025-02-07 07:39 | XMS_ITS | Clinical Summary ---
Author Organization [facility] Facility Address [address] [place] [id number] Care Team Providers Care Flasher Adjuster Name Role Phone Lisha Charles MD Primary Care Provider Medications eplerenone (INSPRA) 50 MG tablet TAKE 1 TABLET BY MOUTH DAILY 30 tablet 10 12/28/2021 Active Family History Medical History Relation Comments Cancer Father Diabetes Father Heart disease Father Hypertension Father Kidney disease Father Diabetes Mother Hypertension Mother Stroke Mother Relation Status Comments Father Mother Social History Tobacco Use Types Packs/Day Years Used Date Smoking Tobacco: Never Alcohol Use Standard Drinks/Week Comments Yes 0 (1 standard drink = 0.6 oz pure alcohol) Alcoholic Drinks/day: Occasional social drink Sex and Gender Information Value Date Recorded Sex Assigned at Not on file Legal Sex Male 4:44 PM EST Gender Identity Not on file Sexual Orientation Not on file Last Filed Vital Signs Vital Sign Reading Time Taken Comments Blood Pressure 136/68 10/23/2018 12:00 PM EDT Pulse 48 10/23/2018 12:00 PM EDT Temperature - - Respiratory Rate - - Oxygen Saturation 97% 10/23/2018 12: 00 PM EDT Inhaled Oxygen Concentration - - Weight 92.4 kg (203 lb 11.3 oz) 019 12:00 PM EDT Height 177.8 cm (5' 10 ) 10/23/2018 12: 00 PM EDT Body Mass Index 29.23 10/23/2018 12:00 PM EDT Plan of Treatment Health Maintenance Due Date Last Done Comments Colorectal Cancer Screening: Annual FOBT 07/03/2003 Colorectal Cancer Screening: Colonoscopy 07/03/2003 Colorectal Cancer Screening: Sigmoidoscopy 07/03/2003 Pneumococcal Vaccine: 50+ Ye ars (1 of 1 - PCV) 2004 Influenza Vaccine (#1) 2024 Hepatitis B Vaccine Aged Out No longe r eligible based on patient's age to complete this topic Insurance Care Teams Flasher Adjuster Relationship Specialty Start Date End Date Lisha Charles MD [address] [place] [address] [address] [place] [address] PCP - General 04/06/20
--- OUTSIDE RECORDS SUMMARY | 2025-02-07 07:39 | XMS_ITS | Clinical Summary ---
Author Organization [facility] Address [address] [place] [address] Phone Care Team Providers Care Color Depositing Machine Tender Name Role Phone Lisha Charles MD Primary Care Provid er Allergies No known active allergies Medications atorvastatin (LIPITOR) 10 mg tablet Take by mouth. Activ e cloNIDine (CATAPRES) 0.1 mg tablet Take by mouth. Activ e cyanocobalamin (VITAMIN B-12) 100 mcg tablet Take 1 Tablet by mouth daily. Active losartan (COZAAR) 25 mg tablet Take 25 mg by mouth daily. Active NIFEdipine CC (ADALAT CC) 90 mg 24 hr tablet Take by mouth. Active eplerenone (INSPRA) 50 mg tablet Take 50mg by mouth daily. Active potassium chloride (KLOR-CON M10) 10 mEq CR tablet Take 1 tablet (10 mEq total) by mouth 1 (one) time each day. Tablet may be swallowed whole (do not crush/chew/suck on) OR broken in half and each half swallowed separately OR dissolved (whole tablet) in ~4 ounces of water (allow ~2 minutes to dissolve, stir well and administer immediately). 90 each 2 4 Active carvediloL (COREG) 6.25 mg tablet TAKE ONE TABLET BY MOUTH TWO TIMES A DAY WITH MEALS 180 tablet 1 5 Active Active Problems Problem Noted Date Diagnosed Date Palpitations 03/09/2021 Overview (12/26/2023): Last Assessment & Plan: Coincide with his frequent PVCs. He had no ischemic symptoms so far. But we need to assess possibility of ischemia given his risk factors including age and hypertension. I will arrange exercise echocardiogram stress test. Hypertension 03/09/2021 Overview (12/26/2023): Multidrug resistant hypertension. No renal artery stenosis. Last Assessment & Plan: Blood pressure generally well controlled on current regimen. He knows to follow a low-sodium diet and maintain regular exercise. Ventricular ectopy 03/04/2021 Overview (12/26/2023): Frequent PVCs. Holter monitor showed a 13% PVC burden. Transition to positive QRS complex in V4 suggesting outflow tract etiology. No evidence of right ventricular outflow tract cardiomyopathy. No syncope or family history of premature sudden cardiac . 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 There is no evidence of underlying cardiomyopathy or active coronary artery disease based on his current work-up and history. I reviewed the basis for the PVCs along with the potential treatments including pharmacologic suppression and catheter ablation. Given his LVEF does remain normal and the symptom burden is really quite mild is very reasonable to treat these conservatively and continue to monitor for any ventricular dysfunction. He elected to follow that path. It would be reasonable to ablate these given there is no location that would likely be accessible if we decide on a more aggressive approach at any time. Bradycardia 03/04/2021 Encounters Date Type Department Care Team Description 02/04/2025 Results Follow-Up [facility] [address] [place] [address] Reyna Nelson PA 01/30/2025 8:00 AM EST Ancillary Procedure [facility] [address] [place] [address] SOB (shortness of breath) from Last 3 Months Medical History Medical History Date Comments Palpitations 03/09/2021 Primary hypertension Bradycardia 03/04/2021 Ventricular premature beats 03/04/2021 Social History Tobacco Use Types Packs/Day Years Used Date Smoking Tobacco: Never Passive Smoke Exposure: Never Smokeless Tobacco: Never Tobacco Cessation:Counseling Given: Not Answered Alcohol Use Standard Drinks/Week Comments Yes 0 (1 standard drink = 0.6 oz pur e alcohol) Sex and Gender Information Value Date Recorded Sex Assigned at Not on file Legal Sex Male 6:58 AM EST Gender Identity Not on file Sexual Orientation Not on file Obstetrics History Last Filed Vital Signs Vital Sign Reading Time Taken Comments Blood Pressure 128/63 01/30/2025 8:14 AM EST Pulse 60 02/01/2024 2:22 PM EST Temperature - - Respiratory Rate - - Oxygen Saturation 98% 02/01/2024 2:22 PM EST Inhaled Oxygen Concentration - - Weight 85.7 kg (189 lb) 01/30/2025 8:14 AM EST Height 182.9 cm (6') 01/30/2025 8:14 AM EST Body Mass Index 25.63 01/30/2025 8:14 AM EST Plan of Treatment Upcoming Encounters Date Type Department Care Team (Late st Contact Info) Description 04/01/2025 9:25 AM EST Office Visit [facility] [address] [facility] [address] [place] [address] Hood Bowers MD [address] [place] [address] [place] [address] Health Maintenance Due Date Last Done Comments Colorectal Cancer Screening: Colonoscopy 1955 Abdominal Aortic Aneurysm (AAA) Screen 03/05/2022 Cholesterol Screening (Lipid Panel) 03/05/2022 Falls Risk Assessment 03/05/2022 Hepatitis C Screening 03/05/2022 Medicare Annual Wellness Visit 03/05/2022 Social Influencers of Health Screening 03/05/2022 Depression Screening 03/27/2024 Hypertension/CHF/CAD Annual BMP Blood Test 04/19/2025 04/19/2024 COVID-19 Vaccine ( season) 2025 01/17/2025, 11/29/2023, 01/13/2023, Additional history exists RSV Immunization Adult Patients (1 - 1-dose 75+ series) 2029 DTaP,Tdap,and Td Vaccines (3 - Td or Tdap) 01/03/2032 01/02/2022, 10/09/2020 Zoster Vaccines Completed 02/04/2021, 10/09/2020 Pneumococcal Vaccine: 50+ Years Completed 08/02/2022 Influenza Vaccine Completed 01/17/2025, , 01/13/2023, Additional history exists HIB Vaccines Aged Out No longer eligi ble based on patient's age to complete this topic HPV Vaccines Aged Out No longer eligi ble based on patient's age to complete this topic Hepatitis A Vaccines Aged Out No long er eligible based on patient's age to complete this topic Hepatitis B Vaccines Aged Out No long er eligible based on patient's age to complete this topic IPV Vaccines Aged Out No longer eligi ble based on patient's age to complete this topic MMR Vaccines Aged Out No longer eligi ble based on patient's age to complete this topic Meningococcal ACWY Vaccine Aged Out N o longer eligible based on patient's age to complete this topic Meningococcal B Vaccine Aged Out No l onger eligible based on patient's age to complete this topic RSV Immunization Patients Under 20 months Aged Out No longer eligible based on patient's age to complete this topic Varicella Vaccines Aged Out No longer eligible based on patient's age to complete this topic Procedures Procedure Name Priority Date/Time Associated Diagnosis Comments TRANSTHORACIC ECHOCARDIOGRAM (TTE) COMPLETE Routine 01/30/2025 8:46 AM EST SOB (shortness of breath) BASIC METABOLIC PANEL Routine 04/19/2024 3:42 PM EST from Last 3 Months or Most Recently Relevant to Health Maintenance Results * TRANSTHORACIC ECHOCARDIOGRAM (TTE) COMPLETE (01/30/2025 8:46 AM EST) Left Atrium Minor Monette 5.2 cm CV PACS Left Atrium Major Monette 5.4 cm CV PACS LA Area Sys (A2C) 20 cm2 CV PACS LA Area Sys (A4C) 23 cm2 CV PACS LA Volume (BP) 71 mL CV PACS RA Area 15.3 cm2 CV PACS RA 2D Volume 35 mL CV PACS AV Mean Gradient 5 mmHg CV PACS Ao VTI 33.6 cm CV PACS AV Peak Efrain 1.5 m/s CV PACS AV Peak Gradient 9 mmHg CV PACS AV Area Continuity Equation 3.0 cm2 CV PACS AV Area Peak Velocity 3.0 cm2 CV PACS Aortic Sinus Valsalva 3.4 cm CV PACS Ascending Aorta 3.2 cm CV PACS IVC Proximal 1.0 cm CV PACS IVSD 0.9 0.6 - 1.0 cm CV PACS LVIDD 4.9 4.2 - 5.8 cm CV PACS LVIDS 2.8 2.5 - 4.0 cm CV PACS LVOT Diameter 2.3 cm CV PACS LVOT Mean Efrain 0.8 m/s CV PACS LVOT Mean Grad 3 mmHg CV PACS LVOT Peak VTI 24.6 cm CV PACS LVOT Peak Efrain 1.1 m/s CV PACS LVOT Peak Gradient 5 mmHg CV PACS LVPWD 1.0 0.6 - 1.0 cm CV PACS MV E' Tissue Velocity Septal 10 cm/s CV PACS LVOT Area 4.2 cm2 CV PACS LVOT Stroke Volume 102 mL CV PACS MV Deceleration [place] 3.6 m/s2 CV PACS E Wave Deceleration Time 214 119 - 242 ms CV PACS MV PHT 63 ms CV PACS MV Peak A Efrain 0.61 m/s CV PACS MV Peak E Efrain 0.78 m/s CV PACS MV Area PHT 3.5 cm2 CV PACS PV Acceleration Time 108 ms CV PACS PV Acceleration Time 108 ms CV PACS PV Peak Velocity 1.2 m/s CV PACS PV Peak Gradient 6 mmHg CV PACS RV Diastolic Basal Dimension 2.9 2.5 - 4.1 cm CV PACS TAPSE 33 mm CV PACS TR Peak Velocity 2.63 m/s CV PACS TR Peak Gradient 28 mmHg CV PACS E/E' Ratio Septal 8 CV PACS LVOT Stroke Index 49 mL/m2 CV PACS Relative Wall Thickness ratio 0.41 CV PACS LVOT:AV VTI Index 0.73 CV PACS FS 43 % CV PACS LV Mass 2D 164 g CV PACS Ascending Aorta Index 1.54 cm/m2 CV PACS LVOT flow 332 mL/s CV PACS RA 2D Volume Index 17 mL/m2 CV PACS RIMA Index (VTI) 1.46 cm2/m2 CV PACS RIMA Index (Pk Efrain) 1.44 cm2/m2 CV PACS LVIDD Index 2.36 cm/m2 CV PACS LVIDS Index 1.35 cm/m2 CV PACS AV Velocity Ratio 0.73 CV PACS E/A Ratio 1.3 CV PACS LA Volume Index (BP) 34 mL/m2 CV PACS LV Mass Index 2D 79 g/m2 CV PACS BSA 2.09 m2 CV PACS Right Ventricular Peak Systolic Pressure 31 mmHg CV PACS Est. RA Pressure 3 mmHg CV PACS Anatomical Region Laterality Modality Ultrasound Narrative 01/31/2025 3:39 PM EST Left ventricle cavity size is normal. Wall thickness is normal. Systolic function is normal with an ejection fraction of 60-65%. There are no regional LV wall motion abnormalities. There is no diastolic dysfunction. Right ventricle cavity is normal. Right ventricular systolic function is normal. Mild tricuspid regurgitation. The right ventricular systolic pressure is normal and estimated at 31 mmHg. There are no significant changes compared to the previous study from 11/16/2022. Left Ventricle Left ventricle cavity size is normal. Wall thickness is normal. Systolic function is normal with an ejection fraction of 60-65%. There are no regional LV wall motion abnormalities. There is no diastolic dysfunction. Right Ventricle Right ventricle cavity appears normal. Systolic function is normal. Normal TAPSE (> 17 mm). Left Atrium Left atrium cavity size is normal. Right Atrium Right atrium cavity is normal. IVC/SVC RA pressures is estimated to be 3 mmHg (IVC diameter <21 mm and decreases >50% during inspiration). Mitral Valve The leaflets are mildly thickened. There is trace regurgitation. There is no evidence of mitral valve stenosis. Tricuspid Valve Tricuspid valve structure is normal. There is mild regurgitation. There is no evidence of tricuspid valve stenosis. The right ventricular systolic pressure is normal. The RVSP is estimated at 31 mmHg. Aortic Valve The aortic valve is trileaflet. There is no regurgitation or stenosis. Pulmonic Valve Visualized portions of the pulmonic valve appear normal. There is mild pulmonic valve regurgitation. No significant pulmonary valve stenosis noted. Ascending Aorta The aorta appears normal in size. Pericardium Pericardium appears normal. Study Details Overall the study quality was adequate. us Nani Holman NP CV ECHO PROCEDURES Final Res ult * Basic metabolic panel (04/19/2024 3:42 PM EST) Glucose 88 70 - 99 mg/dL [facility] Blood Urea Nitrogen (BUN) 11 8 - 27 mg/dL [facility] 1 Creatinine 0.89 0.76 - 1.27 mg/dL [facility] 1 eGFR 93 >59 mL/min/1.7 3 [facility] 1 BUN/Creatinine Ratio 12 10 - 24 [facility] 1 Sodium 143 134 - 144 mmol/L [facility] 1 Potassium 4.2 3.5 - 5.2 mmol/L [facility] 1 Chloride 104 96 - 106 mmol/L [facility] 1 Carbon Dioxide 24 20 - 29 mmol/L [facility] 1 Calcium 9.5 8.6 - 10.2 mg/dL [facility] 1 04/19/2024 3:42 PM EST 04/19/2024 Narrative [facility] 1 - 04/20/2024 8:08 AM EST Performed at: 01 - [facility] [address] [id number] Sales Development Associate: Yeimi Corbin MD, Phone: [phone] us Nani Holman NP LAB BLOOD ORDERABLES Final R esult [facility] 1 from Last 3 Months or Most Recently Relevant to Health Maintenance Insurance MEDICARE [facility] Advance Directives Documents on File Type Date Recorded Patient Analytics Leader Expl anation Health Care Decision (hx) 07/28/2015 AD WILSON DIRECTIVE Health Care Decision (hx) 07/28/2015 AD WILSON DIRECTIVE Health Care Decision (hx) 07/28/2015 AD WILSON DIRECTIVE Health Care Decision (hx) 07/28/2015 AD WILSON DIRECTIVE Health Care Decision (hx) 07/28/2015 AD WILSON DIRECTIVE Health Care Decision (hx) 07/28/2015 AD WILSON DIRECTIVE Health Care Decision (hx) 07/28/2015 AD WILSON DIRECTIVE Health Care Decision (hx) 07/28/2015 AD WILSON DIRECTIVE Health Care Decision (hx) 07/19/2015 AD WILSON DIRECTIVE Health Care Decision (hx) 07/19/2015 AD WILSON DIRECTIVE Health Care Decision (hx) 07/19/2015 AD WILSON DIRECTIVE Health Care Decision (hx) 07/19/2015 AD WILSON DIRECTIVE Health Care Decision (hx) 07/19/2015 AD WILSON DIRECTIVE Health Care Decision (hx) 07/19/2015 AD WILSON DIRECTIVE Health Care Decision (hx) 07/19/2015 AD WILSON DIRECTIVE Health Care Decision (hx) 07/19/2015 AD WILSON DIRECTIVE Care Teams Color Depositing Machine Tender Relationship Specialty Start Date End Date Lisha Charles MD [address] [place] [address] PCP - General Endocrinology 12/06/24
--- OUTSIDE RECORDS SUMMARY | 2025-02-07 07:39 | XMS_ITS | Encounter Summary ---
Author Organization [facility] [place] [facility] Address [address] [place] [address] Care Team Providers Care Python Developer Name Role Phone Lisha Charles MD Primary Care Provid er Encounter Details Date Type Department Care Team (Late Contact Info) Description 02/04/2025 Results Follow-Up [facility] Cardiology [facility] [address] [facility] [address] [place] [phone] Reyna Nelson PA [address] [place] [address] Dr Caicedo [address] [place] [phone] Social History Tobacco Use Types Packs/Day Years Used Date Smoking Tobacco: Never Passive Smoke Exposure: Never Smokeless Tobacco: Never Alcohol Use Standard Drinks/Week Comments Yes 0 (1 standard drink = 0.6 oz pur e alcohol) Sex and Gender Information Value Date Recorded Sex Assigned at Not on file Legal Sex Male 6:58 AM EST Gender Identity Not on file Sexual Orientation Not on file documented as of this encounter Plan of Treatment Upcoming Encounters Date Type Department Care Team (Late Contact Info) Description 04/01/2025 9:25 AM EST Office Visit [facility] Cardiology [facility] [address] [facility] [address] [place] [phone] Hood Bowers MD [address] [place] [address] Dr Caicedo [address] [place] [phone] documented as of this encounter Visit Diagnoses Not on filedocumented in this encounter Care Teams Python Developer Relationship Specialty Start Date End Date Lisha Charles MD [address] [place] [address] PCP - General Endocrinology 12/06/24 documented as of this encounter
[2025-02-07 11:13] LABS: Prostate Specific Antigen 1.98 ng/mL (<0.05-4.0)
== END 2025-02-07 07:38 | disposition home or self-care (01) ==
LOC: HO.10HDL 07:37
PROVIDERS: Visit Provider Urology
DX: N40.1 Benign prostatic hyperplasia with lower urinary tract symptoms (principal); N13.8 Other obstructive and reflux uropathy; Z12.5 Encounter for screening for malignant neoplasm of prostate
CPT/HCPCS: 36415; 84153

== ENCOUNTER 2025-02-19 14:05 | Outpatient (AMB) | payer MEDICARE, OTHER, SELFPAY ==
--- NOTE | 2025-02-19 14:17 | MHC.OFFVIS ---
Intake Visit Reasons: 1Y PSA/PVR(set) Intake Note: Reason for Visit: PSA/PVR Follow Up Urology Meds: Sildenafil, Pentoxifylline, Tadalafil, Vitamin E Blood Thinners: None Labs: PSA- 1.98 (02/07/2025) Imaging: None Last PVR: None PVR: 0ml Quiller Machine Fixer Required: No Accompanied by: Self / Same As Patient Allergies No Known Allergies (No Known Allergies*) Allergy (Verified 02/19/25 14:20) HPI Comments Details: Mr Rucker is a very pleasant male. He is a patient of Dr Melgar. He is seen for the following urologic conditions - lower urinary tract symptoms - erectile dysfunction - Peyronie's disease Yearly follow-up PSA remains stable 1.98 Recurrent Peyronie's - stable not interfering with activity - palpable plaque at dorsum of penis Twelve month follow-up Lower Urinary Tract Symptoms: Current visit is for further evaluation of, lower urinary tract symptoms, predominate obstructive symptoms - minimal issues with good stream. Current treatment includes 04/15 no medications. Prior treatments include 10/10 HoLEP, 07/17 Green Light PSA 08/11 1.7 04/15 2.0, 02/16 3.4, 07/18 2 Prostatitis/CPPS: 10/14/15 - seen in ER at [facility]. Noted to have Escherichia coli urinary tract infection. Erectile dysfunction: He presents today for for continued evaluation and management of erectile dysfunction. Symptoms have been present for/since years ago. Current treatment includes sildenafil 100 mg. At this time he experiences erections 09/11 are partial and adequate for vaginal penetration, that undergo rapid detumesence after penetration, ROVERTO 8-11 Moderate ED. Nocturnal erections do occur. Currently they are in a stable relationship. Associated problems hypertension Yes Overall he is satisfied with the current management [facility] Medical History Diverticulitis Irregular heart beat Travis's palsy HTN (hypertension) Hyperlipidemia Erectile dysfunction due to arterial insufficiency Nocturia Benign prostatic hyperplasia with lower urinary tract symptoms Chronic prostatitis Enterococcus as the cause of diseases classified elsewhere UTI (urinary tract infection) Surgical History History of colon resection H/O colonoscopy History of prostate surgery History of surgery Social History Are you a primary health care marketing manager to a significant other at home: No Do you presently have visiting nurse or other home services: No Patient Tobacco Use Status: Never used Tobacco Review of Systems Const Denies chills and Denies fever(s) Card Reports no additional complaints and Denies syncope Resp Denies cough GI Denies abdominal pain and Denies heartburn Reports as per HPI and Denies change in libido Neuro Denies syncope Psych Denies change in libido Endo Denies change in libido Physical Exam Const General: cooperative, healthy appearing, comfortable and no acute distress Orientation/consciousness: patient oriented x3 HEENT Face and sinus: Yes normal facial exam Mouth: moist mucous membranes Neck Neck: Yes normal visual inspection, Yes full ROM and Yes trachea midline Chest Chest palpation & inspection: normal inspection of the chest Resp Effort & Inspection: normal respiratory effort, able to speak in complete sentences and no respiratory distress GI Inspection: Yes normal to inspection Back/Spine/Pelvis Cervical Spine: normal cervical lordosis Thoracic/Lumbar Spine: thoracic and lumbar spine normal to inspection Skin General skin exam: no rashes or lesions noted Neuro General: patient oriented x3, gait normal, tone normal and moves all extremities Extrem General: Yes normal to inspection and Yes capillary refill normal Office Procedures Post Void Residual Post Residual Void Post Void Residual (PVR): 0 [id number] Void Residual by ultrasound Assessment & Plan Assessment & Plan (1) BPH w urinary obs/LUTS: Code(s): N40.1 - Benign prostatic hyperplasia with lower urinary tract symptoms; N13.8 - Other obstructive and reflux uropathy Category: Medical (2) Erectile dysfunction: Code(s): N52.9 - Male erectile dysfunction, unspecified Category: Medical Qualifiers: Erectile dysfunction type: vasculogenic Vasculogenic erectile dysfunction type: due to arterial insufficiency Qualified Code(s): N52.01 - Erectile dysfunction due to arterial insufficiency (3) Peyronie's disease: Code(s): N48.6 - Induration penis plastica Category: Medical Plan Twelve month follow-up Orders: Orders AMB Post Void Residual by ultrasound Today N13.8 - Other obstructive and reflux uropathy, N40.1 - Benign prostatic hyperplasia with lower urinary tract symptoms Prostate Specific Antigen 12 Months N13.8 - Other obstructive and reflux uropathy, N40.1 - Benign prostatic hyperplasia with lower urinary tract symptoms Patient Instructions: This note is constructed using voice recognition software. While every effort has been made to ensure accuracy tawer errors may have been included. Imaging studies, laboratory and physical exam results were discussed and reviewed in detail. No major barriers to patient understanding were identified. An opportunity to ask questions regarding the treatment plan was provided. All questions were answered. The patient expressed understanding and agreement with the above treatment plan. The patient is aware they should contact our office by phone for worsening of their current condition or the appearance of new urologic symptoms. Compliance is encouraged with any medications and followup testing that is ordered. It is a privilege to participate in the urologic care of your patient. If you have any questions or concerns regarding treatment for the above conditions, or other urologic issues, please do not hesitate to contact me. The office telephone contact is [phone]. Sincerely, Dr Regulo Mina MD, [facility] - Urology Compassionate Specialist Care for the Genitourinary System Coding Level of Care Code Est Pt Level 4 (39729) Complex visit Add On G2211 Diagnoses BPH w urinary obs/LUTS N40.1; N13.8 Erectile dysfunction due to arterial insufficiency N52.01 Erectile dysfunction type: vasculogenic Vasculogenic erectile dysfunction type: due to arterial insufficiency Peyronie's disease N48.6 CPT Codes Post Residual Void - PVR CPT Code: 68946-Qxlt Void Residual by ultrasound ([id number])
--- OUTSIDE RECORDS SUMMARY | 2025-02-19 17:06 | XMS_ITS | Clinical Summary ---
Author Organization [facility] Address [address] [place] [address] Care Team Providers Care Computer Numerical Control Grinder Name Role Phone Lisha Charles MD Primary [...] age to complete this topic Care Teams Computer Numerical Control Grinder Relationship Specialty Start Date End Date Lisha Charles MD [address] [place] [address] PCP - General Gastroenterology 02/03/23
== END 2025-02-19 14:36 | disposition home or self-care (01) ==
LOC: HO.HUSH 14:06
PROVIDERS: PCP Pediatrics Adolescent Medicine; Visit Provider Urology
DX: N40.1 Benign prostatic hyperplasia with lower urinary tract symptoms (principal); N13.8 Other obstructive and reflux uropathy; N52.01 Erectile dysfunction due to arterial insufficiency; N48.6 Induration penis plastica
CPT/HCPCS: 99214; G2211

== ENCOUNTER → 2025-02-19 14:05 | Outpatient (BNVA) | payer MEDICARE, OTHER, SELFPAY | PROVIDERS: PCP Pediatrics Adolescent Medicine; Visit Provider Urology | DX: N40.1 Benign prostatic hyperplasia with lower urinary tract symptoms (principal); N13.8 Other obstructive and reflux uropathy; N52.01 Erectile dysfunction due to arterial insufficiency; N48.6 Induration penis plastica | CPT/HCPCS: 51798; 99212 ==